=== PATIENT | female | born 1975 | race African-American/Black ===

== ENCOUNTER 2019-06-26 10:34 | Outpatient (CLI) | payer OTHER ==
[2019-06-26 11:17] LABS: PLATELET COUNT 289 K/uL (152-353)
[2019-06-26 11:39] LABS: POTASSIUM 3.6 mmol/L (3.6-5.2)
== END 2019-06-26 19:09 | disposition home or self-care (01) ==
LOC: LABW 10:34
PROVIDERS: Family Medicine
DX: R51 Headache (principal); R42 Dizziness and giddiness; Z87.898 Personal history of other specified conditions; H53.9 Unspecified visual disturbance; R53.83 Other fatigue; Z86.39 Personal history of other endocrine, nutritional and metabolic disease; R11.2 Nausea with vomiting, unspecified
CPT/HCPCS: 36415; 80053; 80061; 81000; 84439; 84443; 85027

== ENCOUNTER 2019-07-06 13:42 | Outpatient (CLI) | payer OTHER | END 2019-07-06 19:28 | disposition home or self-care (01) | LOC: MRI 13:42 | DX: R51 Headache (principal); R42 Dizziness and giddiness; Z87.898 Personal history of other specified conditions; H53.9 Unspecified visual disturbance; R53.83 Other fatigue; Z86.39 Personal history of other endocrine, nutritional and metabolic disease; R11.2 Nausea with vomiting, unspecified | CPT/HCPCS: A9576 ==

== ENCOUNTER 2022-01-02 16:02 | Outpatient (CLI) | payer OTHER | END 2022-01-02 19:30 | disposition home or self-care (01) | LOC: RAD 16:02 | PROVIDERS: ATTEND Family Medicine | DX: R07.9 Chest pain, unspecified (principal) ==

== ENCOUNTER 2022-04-19 14:34 | Outpatient (CLI) | payer OTHER | END 2022-04-19 21:04 | disposition home or self-care (01) | LOC: RAD 14:34 | PROVIDERS: ATTEND Family Medicine | DX: M54.2 Cervicalgia (principal); M25.512 Pain in left shoulder; M54.89 Other dorsalgia ==

== ENCOUNTER 2022-08-12 19:33 | Emergency (ER) | payer OTHER ==
[~2022-08-12] VITALS: Ht 152.4 cm; Wt 59.9 kg
[2022-08-12 19:40] VITALS: BP 108/82; TEMP 97.9
== END 2022-08-12 20:59 | disposition home or self-care (01) ==
LOC: ED 19:33
DX: S92.352A Displaced fracture of fifth metatarsal bone, left foot, initial encounter for closed fracture (principal); W01.0XXA Fall on same level from slipping, tripping and stumbling without subsequent striking against object, initial encounter; Y93.66 Activity, soccer; Y92.89 Other specified places as the place of occurrence of the external cause
CPT/HCPCS: 96373; 99284; J1885

== ENCOUNTER 2022-10-31 14:46 | Outpatient (CLI) | payer OTHER | END 2022-10-31 23:06 | disposition home or self-care (01) | LOC: RAD 14:46 | PROVIDERS: ATTEND Family Medicine | DX: M54.2 Cervicalgia (principal); M54.89 Other dorsalgia ==

== ENCOUNTER 2023-04-12 13:04 | Outpatient (CLI) | payer OTHER | END 2023-04-12 20:45 | disposition home or self-care (01) | LOC: RAD 13:04 | PROVIDERS: ATTEND Family Medicine | DX: N95.1 Menopausal and female climacteric states (principal); N95.8 Other specified menopausal and perimenopausal disorders ==